=== PATIENT | female | born 1935 | race Caucasian/White ===

== ENCOUNTER 2018-02-26 14:08 | Emergency (ER) | payer MEDICARE, OTHER ==
[~2018-02-26] VITALS: Ht 162.6 cm; Wt 108.0 kg
[~2018-02-26 14:08] MED LIST: ACET325 PO; Bactrim Ds Tab1 EACH PO; CEPH125SU; CLIN300 PO; DIPH50 PO; EZET10-10 PO; OLME20 PO; PENVK500 PO; SACC250C PO; SIMV10 PO
[2018-02-26] MEDS ORDERED: OTC POTASSIUM (15:19)
[2018-02-26] MEDS ORDERED: OTC MAGNESIUM (15:19)
[2018-02-26] MEDS ORDERED: KETO200 PO (15:20)
== END 2018-02-26 16:15 | disposition home or self-care (01) ==
LOC: ER 14:08
DX: L25.9 Unspecified contact dermatitis, unspecified cause (principal); Z88.1 Allergy status to other antibiotic agents; Z88.2 Allergy status to sulfonamides; Z79.899 Other long term (current) drug therapy; I10 Essential (primary) hypertension; E78.00 Pure hypercholesterolemia, unspecified
CPT/HCPCS: 99282

== ENCOUNTER → 2019-08-22 | Outpatient (CLI) | payer MEDICARE, OTHER ==
[~2019-08-22] MED LIST changes: +KETO200 PO; +OTC MAGNESIUM; +OTC POTASSIUM
== END | disposition home or self-care (01) ==
LOC: LAB SHORT 09:13 → LAB EV 09:13
DX: N39.0 Urinary tract infection, site not specified (principal)
CPT/HCPCS: 87077; 87086; 87147; 87186

== ENCOUNTER → 2021-05-28 | Outpatient (CLI) | payer MEDICARE, OTHER ==
[~2021-05-28] MED LIST changes: +MECL25 PO
[2021-05-28 17:23] LABS: Anion Gap 4 mmol/L (6-16); Blood Urea Nitrogen 18 mg/dL (8-24); Bun/Creatinine Ratio 23.6 (12.0-20.0); CO2, Blood 27 mmol/L (21-32); Calcium, Blood 9.3 mg/dL (8.5-10.1); Chloride, Blood 109 mmol/L (98-108); Creatinine, Blood 0.76 mg/dL (0.40-1.00); Glomerular Filtration Rate >60 (60-); Glucose, Blood 98 mg/dL (70-99); Potassium, Blood 4.3 mmol/L (3.5-5.5); Sodium, Blood 140 mmol/L (136-145)
== END | disposition home or self-care (01) ==
LOC: LAB SHORT 14:44
PROVIDERS: Nurse Practitioner Family
DX: I10 Essential (primary) hypertension (principal)
CPT/HCPCS: 80048

== ENCOUNTER → 2024-08-04 | Outpatient (CLI) | payer MEDICARE, OTHER | LOC: LAB 13:48 → LAB SHORT 13:48 | DX: R34 Anuria and oliguria (principal) | CPT/HCPCS: 87086 ==